=== PATIENT | female | born 1940 | race Caucasian/White ===

== ENCOUNTER 2021-05-02 00:37 | Emergency (ER) | payer OTHER ==
[2021-05-02 01:49] LABS: Urine Blood Negative (Negative); Urine Glucose Negative (Negative); Urine Protein Negative (Negative)
[2021-05-02 01:59] LABS: Absolute Lymphocytes (CBC) 2.1 K/uL (0.7-4.9); Basophils % 0.6 % (0-1.3); Hematocrit 42.3 % (36.0-45.0); Lymphocytes % 30.1 % (15.3-44.8); MPV 8.1 fL (7.6-11.3); RBC Red Blood Cell Count 4.58 M/uL (3.86-4.86)
[2021-05-02] MEDS ORDERED: NA CHLORIDE 0.9% 500 ML ONE (02:05)
[2021-05-02 02:08] LABS: Urine Bacteria <20 /HPF (<20); Urine RBC <5 /HPF (NONE SEEN)
[2021-05-02 02:12] LABS: BUN Blood Urea Nitrogen 16 mg/dL (7-18); Bicarbonate 25 mmol/L (21-32); Glucose Level 126 mg/dL (74-106); Potassium 3.2 mmol/L (3.5-5.1); Sodium Level 138 mmol/L (136-145); Troponin (Emerg Dept Use Only) < 0.02 ng/mL (0.0-0.045)
[2021-05-02] MEDS ORDERED: ACETAMINOPHEN 325 MG TABLET ONE (03:31)
[2021-05-02] MEDS ORDERED: LORAZEPAM 0.5 MG TABLET ONE (03:36)
--- NOTE | 2021-05-02 05:31 | RAD REPORT ---
EXAM DESCRIPTION: CT - Head Brain Wo Cont - 05/02/2021 2:32 am CLINICAL HISTORY: hypertension, headache COMPARISON: Head Brain Wo Cont dated 10/28/2016 TECHNIQUE: Axial 5 mm thick images of the head were obtained without IV contrast. All CT scans are performed using dose optimization technique as appropriate and may include automated exposure control or mA/KV adjustment according to patient size. FINDINGS: No intracranial hemorrhage, mass, edema or shift of mid-line structures. No acute infarcti on changes seen. Mild atrophy changes are present ventricles are in proportion to the amount of volum e loss. Chronic ischemic changes are minimal. Intracranial not clearly different 2016. Mastoid air cells and visualized portions of the paranasal sinuses are clear. No acute bony findings. IMPRESSION: Negative non-contrast CT head examination for acute finding. Above detailed findings are similar to the 2017 study.
--- NOTE | 2021-05-02 05:36 | ER ---
Nurse's Notes [facility] Name: Emi Bautista Age: 81 yrs Sex: Female : 1940 Arrival Date: 05/02/2021 Time: 00:40 Bed 27 Private MD: Diagnosis: Essential (primary) hypertension;Anxiety disorder, unspecified Presentation: 05/02 00:55 Chief complaint: Patient states: that her blood pressure has been fluctuating all day, lh3 last one at home was 167/91, so she was concerned about it and came in. States that she took a Myrbetriq for her bladder and that is when all this started. Pt states she has not taken blood pressure medication since 2019, and had pills left over, so she took that and then took half of husbands Losartan potassium tonight. C/O headache and just not feeling well. Coronavirus screen: Vaccine status: Patient reports receiving the 2nd dose of the covid vaccine. Date September 2020. Ebola Screen: No symptoms or risks identified at this time. Initial Sepsis Screen: Does the patient meet any 2 criteria? No. Patient's initial sepsis screen is negative. Does the patient have a suspected source of infection? No. Patient's initial sepsis screen is negative. Initial Sepsis Screen: Does the patient meet any 2 criteria? HR > 90 bpm. Risk Assessment: Do you want to hurt yourself or someone else? Patient reports no desire to harm self or others. Onset of symptoms was May 02, 2021. 00:55 Method Of Arrival: Ambulatory 3 00:55 Acuity: CEDRICK 2 3 Triage Assessment: 01:01 General: Appears in no apparent distress. Behavior is calm, cooperative, appropriate lh3 for age. Pain: Complains of pain in face. 01:01 Pain: Pain level that patient reports is acceptable is 2 out of 10 on a pain scale. lh3 Quality of pain is described as aching. Historical: - Allergies: 01:01 Cymbalta; lh3 01:01 Librax; lh3 01:01 Neurontin; lh3 01:01 Paxil; lh3 01:01 Qnlqimm-Rbb-Zrn Reductase Inhibitors; lh3 01:01 Tramadol HCl; lh3 01:01 Xanax; lh3 - PMHx: 01:01 Hypertension; Osteoporosis; lh3 - Immunization history:: Client reports receiving the 2nd dose of the Covid vaccine, Date received: October 2020. - Social history:: Smoking status: Patient denies any tobacco usage or history of. - Family history:: not pertinent. - Hospitalizations: : No recent hospitalization is reported. Screenin:09 Abuse screen: Denies threats or abuse. Nutritional screening: No deficits noted. cc4 Tuberculosis screening: No symptoms or risk factors identified. Fall Risk None identified. Assessment: 01:09 Reassessment: Patient denies pain at this time. Reports feeling anxious; reports blood cc4 pressure being elevated today; denies any chest pain; Dr Reza in to see with assessment done.. 01:35 Reassessment: No changes from previously documented assessment. #20 g saline lock cc4 inserted left AC x1 attempt with bld drawn \T\ sent to lab, [facility]; swabbed for Covid, [facility]. 01:35 Reassessment: BP 177/95; denies any complaints of CP; EKG done. cc4 03:10 Reassessment: c/o generalized body aches; appears to be anxious moving about in bed cc4 with increased HR \T\ BP; Dr Landaverde notified with new orders received; Tylenol 325 mg \T\ Ativan 0.5 mg given po. 04:00 Reassessment: Sitting in bed; remains awake/alert; con't to appear anxious; reports cc4 decreasing discomfort when questioned; sinus tachycardia con't noted; BP remains elevated; Dr. Landaverde, aware with no new orders rec'd \T\ present time. 05:00 Reassessment: Dozing intermittently; HR decreasing to 109; BP decreasing; BP decreasing cc4 to 142/91. 05:00 Reassessment: Dr. Landaverde in to see with no new orders received. cc4 Vital Signs: 00:55 BP 157 / 102; Pulse 97; Resp 18; Temp 97.8; Pulse Ox 97% on R/A; Weight 56.7 kg; Height lh3 5 ft. 1 in. (154.94 cm); 01:09 BP 184 / 110; Pulse 105; Resp 20; Temp 97.8(O); Pulse Ox 96% ; cc4 01:15 BP 177 / 86; Pulse 97; Resp 20; Pulse Ox 95% on R/A; cc4 03:10 BP 173 / 96; Pulse 131; Resp 22; Pulse Ox 93% on R/A; cc4 04:00 BP 164 / 97; Pulse 126; Resp 20; Temp 98.2(O); Pulse Ox 95% on R/A; cc4 05:00 BP 142 / 91; Pulse 110; Resp 20; Pulse Ox 94% on R/A; cc4 06:15 BP 148 / 89; Pulse 103; Resp 17; Temp 98.0; Pulse Ox 96% on R/A; cc4 00:55 Body Mass Index 23.62 (56.70 kg, 154.94 cm) 3 Vitals: 03:10 Cardiac Rhythm Assessment Sinus tach. cc4 ED Course: 00:40 Patient arrived in ED. wm 00:53 Norman Landaverde MD is Attending Physician. rn 01:01 Triage completed. lh3 01:01 Arm band placed on right wrist. lh3 01:09 Patient has correct armband on for positive identification. night monitor on. Pulse cc4 ox on. NIBP on. Door closed. Noise minimized. Lights dimmed. Moved to private room. Warm blanket given. Pillow given. PO fluids given. 01:09 No provider procedures requiring assistance completed. cc4 01:50 Mary Jane Contreras, SABA is Primary Nurse. cc4 01:51 Urine Microscopic Only Sent. cc4 01:51 Basic Metabolic Panel Sent. cc4 01:51 CBC with Diff Sent. cc4 04:09 CT Head Brain wo Cont In Process Unspecified. EDMS 06:15 IV discontinued, intact, bleeding controlled, No redness/swelling at site. Pressure cc4 dressing applied. Administered Medications: 01:42 Drug: NS 0.9% 500 ml Route: IV; Rate: bolus; Infused Over: 1 hrs; Site: left dc2 antecubital; Delivery: Primary tubing; 03:10 Drug: Tylenol 325 mg Route: PO; cc4 05:00 Follow up: Response: No adverse reaction; Pain is decreased cc4 03:12 Drug: Ativan (LORazepam) 0.5 mg Route: PO; cc4 06:15 Follow up: Response: No adverse reaction; Anxiety decreased; Blood pressure is lowered cc4 Outcome: 05:36 Discharge ordered by . rn 06:15 Discharged to home ambulatory, with significant other. cc4 06:15 Condition: improved 06:15 Condition: stable 06:15 Discharge instructions given to patient, significant other, Instructed on discharge instructions, follow up and referral plans. Demonstrated understanding of instructions, follow-up care. 06:53 Patient left the ED. cc4 Signatures: Dispatcher [employer] EDMS Norman Landaverde MD MD rn Marsh, Wendy wm Hardee, Latisha, RN RN 3 Mary Jane Contreras RN RN 4 Keiry Ash RN RN dc2 Corrections: (The following items were deleted from the chart) 01:52 01:50 CORONAVIRUS+MR.LAB.BRZ drawn and sent. cc4 EDHI
--- NOTE | 2021-05-02 05:36 | EDPHYS ---
Physician Documentation [facility] Name: Emi Bautista Age: 81 yrs Sex: Female : 1940 Arrival Date: 05/02/2021 Time: 00:40 Bed 27 Private MD: ED Physician Norman Landaverde HPI: 05/02 01:23 This 81 yrs old Female presents to ER via Ambulatory with complaints of High rn Blood Pressure. 01:23 The patient has elevated blood pressure and discovered this at home. Onset: The rn symptoms/episode began/occurred this morning. Modifying factors:. Associated signs and symptoms: Pertinent positives: headache, Pertinent negatives: chest pain, dyspnea, vomiting, weakness. Severity of symptoms: At its worst the blood pressure was moderate, in the emergency department the blood pressure is unchanged. The patient has experienced similar episodes in the past. The patient has not recently seen a physician. Patient reports high blood pressure since this morning associated with mild headache, generalized fatigue, and flushing sensation. Reports taken off blood pressure medication 2 years ago and doing okay. Denies any chest pain/shortness of breath/abdominal pain/vomiting/focal neurological deficit.. Historical: - Allergies: 01:01 Cymbalta; lh3 01:01 Librax; lh3 01:01 Neurontin; lh3 01:01 Paxil; lh3 01:01 Axmhxad-Ten-Qpf Reductase Inhibitors; lh3 01:01 Tramadol HCl; lh3 01:01 Xanax; lh3 - PMHx: 01:01 Hypertension; Osteoporosis; lh3 - Immunization history:: Client reports receiving the 2nd dose of the Covid vaccine, Date received: October 2020. - Social history:: Smoking status: Patient denies any tobacco usage or history of. - Family history:: not pertinent. - Hospitalizations: : No recent hospitalization is reported. ROS: 01:23 Constitutional: Negative for fever, chills, and weight loss, Eyes: Negative for injury, rn pain, redness, and discharge, ENT: Negative for injury, pain, and discharge, Neck: Negative for injury, pain, and swelling, Cardiovascular: Negative for chest pain, palpitations, and edema, Respiratory: Negative for shortness of breath, cough, wheezing, and pleuritic chest pain, Abdomen/GI: Negative for abdominal pain, nausea, vomiting, diarrhea, and constipation, Back: Negative for injury and pain, : Negative for injury, bleeding, discharge, and swelling, MS/Extremity: Negative for injury and deformity, Skin: Negative for injury, rash, and discoloration, Neuro: Negative for numbness, tingling, and seizure Exam: 01:23 Constitutional: This is a well developed, well nourished patient who is awake, alert, rn and in no acute distress. Head/Face: Normocephalic, atraumatic. Eyes: Periorbital areas with no swelling, redness, or edema. Neck: Trachea midline, no masses palpated, and no cervical lymphadenopathy. Supple, full range of motion without nuchal rigidity, or vertebral point tenderness. No Meningismus. Cardiovascular: Regular rate and rhythm. No pulse deficits. Respiratory: No increased work of breathing, no retractions or nasal flaring. Abdomen/GI: Soft, non-tender Skin: Warm, dry MS/ Extremity: Pulses equal, no cyanosis. Neuro: Awake and alert, GCS 15, oriented to person, place, time, and situation. Cranial nerves II-XII grossly intact. Motor strength 5/5 in all extremities. Sensory grossly intact. Cerebellar exam normal. Normal gait. 02:34 ECG was reviewed by the Attending Physician. rn Vital Signs: 00:55 BP 157 / 102; Pulse 97; Resp 18; Temp 97.8; Pulse Ox 97% on R/A; Weight 56.7 kg; Height lh3 5 ft. 1 in. (154.94 cm); 01:09 BP 184 / 110; Pulse 105; Resp 20; Temp 97.8(O); Pulse Ox 96% ; cc4 01:15 BP 177 / 86; Pulse 97; Resp 20; Pulse Ox 95% on R/A; cc4 03:10 BP 173 / 96; Pulse 131; Resp 22; Pulse Ox 93% on R/A; cc4 04:00 BP 164 / 97; Pulse 126; Resp 20; Temp 98.2(O); Pulse Ox 95% on R/A; cc4 05:00 BP 142 / 91; Pulse 110; Resp 20; Pulse Ox 94% on R/A; cc4 06:15 BP 148 / 89; Pulse 103; Resp 17; Temp 98.0; Pulse Ox 96% on R/A; cc4 00:55 Body Mass Index 23.62 (56.70 kg, 154.94 cm) lh3 MDM: 00:53 Patient medically screened. rn 05:33 Differential diagnosis: hypertensive crisis, Malignant HTN. Data reviewed: vital signs, rn nurses notes, lab test result(s), EKG, radiologic studies, CT scan, and as a result, I will discharge patient. Counseling: I had a detailed discussion with the patient and/or guardian regarding: the historical points, exam findings, and any diagnostic results supporting the discharge/admit diagnosis, the presence of at least one elevated blood pressure reading (>120/80) during this emergency department visit, lab results, radiology results, the need for outpatient follow up, to return to the emergency department if symptoms worsen or persist or if there are any questions or concerns that arise at home. Response to treatment: the patient's symptoms have markedly improved after treatment, and as a result, I will discharge patient. Special discussion: I have referred the patient to see his PCP for further evaluation of high blood pressure. I discussed with the patient/guardian in detail that at this point there is no indication for admission to the hospital. It is understood, however, that if the symptoms persist or worsen the patient needs to return immediately for re-evaluation. ED course: No acute findings and work-up. Patient sleeping comfortably with marked improvement in blood pressure without any blood pressure medication given here. Patient also very anxious as well. Requested Ativan, states he has had Ativan in the past when gets anxious. Will DC home with PCP follow-up for evaluation of hypertension and possible need to restart her blood pressure medication. 05/02 01:17 Order name: CBC with Diff; Complete Time: 02:13 rn 05/02 01:17 Order name: Basic Metabolic Panel; Complete Time: 02:13 rn 05/02 01:17 Order name: Troponin (emerg Dept Use Only); Complete Time: 02:13 rn 05/02 01:17 Order name: Urine Microscopic Only; Complete Time: 02:13 rn 05/02 01:48 Order name: Urine Dipstick-Ancillary; Complete Time: 01:53 EDMS 05/02 01:17 Order name: CT Head Brain wo Cont; Complete Time: 05:36 rn 05/02 01:17 Order name: IV Start; Complete Time: 01:51 rn 05/02 01:17 Order name: EKG; Complete Time: 01:18 rn 05/02 01:17 Order name: EKG - Nurse/Tech; Complete Time: 01:42 rn 05/02 02:47 Order name: SARS-COV-2 RT PCR; Complete Time: 02:48 EDMS 05/02 01:17 Order name: Urine Dipstick-Ancillary (obtain specimen); Complete Time: 01:50 rn EC:34 Rate is 91 beats/min. Rhythm is regular. QRS [place] is Normal. NM interval is normal. QRS rn interval is normal. QT interval is normal. No Q waves. T waves are Normal. No ST changes noted. Clinical impression: NSR w/ Non-specific ST/T Changes and LVH. Interpreted by me. Reviewed by me. Administered Medications: 01:42 Drug: NS 0.9% 500 ml Route: IV; Rate: bolus; Infused Over: 1 hrs; Site: left dc2 antecubital; Delivery: Primary tubing; 03:10 Drug: Tylenol 325 mg Route: PO; cc4 05:00 Follow up: Response: No adverse reaction; Pain is decreased cc4 03:12 Drug: Ativan (LORazepam) 0.5 mg Route: PO; cc4 06:15 Follow up: Response: No adverse reaction; Anxiety decreased; Blood pressure is lowered cc4 Disposition Summary: 05/02/21 05:36 Discharge Ordered Location: Home rn Problem: an ongoing problem rn Symptoms: have improved rn Condition: Stable rn Diagnosis - Essential (primary) hypertension rn - Anxiety disorder, unspecified rn Followup: rn - With: Private Physician - When: As needed - Reason: Recheck today's complaints, Re-evaluation by your physician Discharge Instructions: - Discharge Summary Sheet rn - Hypertension, Adult rn - How to Take Your Blood Pressure, [id number] rn - Generalized Anxiety Disorder, Adult rn Forms: - Medication Reconciliation Form rn - Thank You Letter rn - 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 EDMS EDMS
[2021-05-02 07:21] VITALS: BP 148/89; TEMP 98; O2SAT 96
== END 2021-05-02 06:53 | disposition home or self-care (01) ==
LOC: ER 00:37
DX: I10 Essential (primary) hypertension (principal); F41.9 Anxiety disorder, unspecified; Z20.822 Contact with and (suspected) exposure to COVID-19; Z88.5 Allergy status to narcotic agent; Z88.8 Allergy status to other drugs, medicaments and biological substances
CPT/HCPCS: 93005; 85025; 80048; 36415; 84484; 70450; 99284; U0003; J7040; 81003; 81015

== ENCOUNTER 2021-10-18 23:40 | Observation (INO) | payer OTHER ==
--- OUTSIDE RECORDS SUMMARY | 2021-10-18 23:44 | XMS REPORT | Continuity of Care Document ---
:1940 Author Organization [facility] t Address [facility] [place] [address] Care Team Providers Name Role Phone CLAIRE Attending Clinician Unavailable MD CLAIRE Attending Clinician Unavailable Bacherelle_L Attending Clinician Unavailable CLAIRE Admitting Clinician Unavailable MD CLAIRE Admitting Clinician Unavailable Baum_L Admitting Clinician Unavailable Payers Payer Name Policy Type Policy Number Effective Date Expiration Date Christina ALBRIGHT (MEDICARE [id number] 2013 REPLACEMENT PPO) 00:00:00 Problems Condition Condition Condition Status Onset Resolution Last Treating Co mments Source Name Details Category Date Date Treatment Clinician Date Carpal Problem Active 2020-05-30 Memor ia tunnel 21:39:16 l syndrome Carpal Carloz n (disorder) tunnel syndrome (disorder) Active Problem 05/30/2020 [facility] Cervical Problem Active 2020-05-30 Mem oria radiculopa 21:39:16 l thy Cervical Carloz n (disorder) radiculopa thy (disorder) Active Problem 05/30/2020 [facility] Hypertensi Problem Active 2020-05-30 M emoria ve 21:39:16 l disorder, Norden systemic Hypertensi arterial ve (disorder) disorder, systemic arterial (disorder) Active Problem 05/30/2020 [facility] Lumbar Problem Active 2020-05-30 Memor ia radiculopa 21:39:16 l thy Lumbar Norden (disorder) radiculopa thy (disorder) Active Problem 05/30/2020 [facility] Paresthesi Problem Active 2020-05-30 M emoria a 21:39:16 l (finding) Hi Paresthesi a (finding) Active Problem 05/30/2020 [facility] Snapping Problem Active 2020-05-30 Mem oria thumb 21:39:16 l syndrome Snapping Herm carl (disorder) thumb syndrome (disorder) Active Problem 05/30/2020 [facility] Allergies, Adverse Reactions, Alerts Allergy Allergy Status Severity Reaction(s) Onset Inactive Treating Comm ents Source Name Type Date Date Clinician Bayron Verma Active Memori a q q l Norden Xanax Xanax Active Memoria l Norden Paxil CR Paxil CR Active Memori a l Hi Lexapro Lexapro Active Memoria l Norden Cymbalta Cymbalta Active Memori a l Norden statins statins Active Memoria l Hi traMADol traMADol Active Memori a l [facility] Social History Smoking Status Start Date Stop Date Source Social History [facility] Medications Ordered Filled Start Stop Current Ordering Indication Dosage Frequency Signature Comments Components Source Medication Medication Date Date Medication? Clinician (SIG) Name Name losartan 25 Yes 25 mg = 1 M emoria mg oral 1-29 tab, PO, l tablet 20:00: Daily, 0 Hi 00 Refill(s) gabapentin Yes 150 mg = 3 M emoria 50 MG/ML 1-29 ml, PO, l Oral 20:00: qWeek, # Norden Solution 00 225 ml, 0 Refill(s) Vital Signs Vital Name Observation Time Observation Value Comments Source Systolic (mm Hg) 2020-01-28 18:13:00 Sim rial Norden Diastolic (mm Hg) 2020-01-28 18:13:00 Mem orial Norden Heart Rate 2020-01-28 18:13:00 [facility] Respitory Rate 2020-01-28 18:13:00 Memori al Hi Height 2020-01-28 18:13:00 154.94 cm [facility] Weight 2020-01-28 18:13:00 [facility] Hi BMI Calculated 2020-01-28 18:13:00 Memori al Hi Systolic (mm Hg) 2019-10-28 15:11:00 Sim rial Norden Diastolic (mm Hg) 2019-10-28 15:11:00 Mem orial Hi Heart Rate 2019-10-28 15:11:00 [facility] Respitory Rate 2019-10-28 15:11:00 Memori al Hi Height 2019-10-28 15:11:00 154.94 cm [facility] Weight 2019-10-28 15:11:00 [facility] BMI Calculated 2019-10-28 15:11:00 Memori al Hi Systolic (mm Hg) 2019-09-03 19:52:00 Sim pascual Hi Diastolic (mm Hg) 2019-09-03 19:52:00 Mem orial Hi Heart Rate 2019-09-03 19:52:00 [facility] Hi Respitory Rate 2019-09-03 19:52:00 Memori al Hi Height 2019-09-03 19:52:00 154.94 cm [facility] Hi Weight 2019-09-03 19:52:00 [facility] Hi BMI Calculated 2019-09-03 19:52:00 Memori al Hi Procedures This patient has no known procedures. Encounters Start End Encounter Admission Attending Care Care Encounter Source Date/Time Date/Time Type Type Clinicians Facility Department ID 2021-09-29 2021-09-30 Inpatient CLAIRE, [facility] [id number] [place] 00:00:00 00:00:00 ELY [address] 2021-09-27 2021-09-27 Outpatient CLAIRE, [facility] [id number] [place] 00:00:00 00:00:00 ELY [address] 2021-05-05 2021-05-05 Outpatient CLAIRE, [facility] [id number] [place] 00:00:00 00:00:00 ELY [address] 2021-05-04 2021-05-04 Outpatient CLAIRE, [facility] [id number] [place] 00:00:00 00:00:00 ELY [address] 2021-04-08 2021-04-08 Outpatient Baum_L [facility] [id number] [place] 12:21:00 12:21:00 [id number] 2020-05-28 2020-05-28 Ambulatory nullFlavo MNA [id number] Memoria 18:15:00 18:15:00 Pre-Reg r Neurology 03 l Rolette Norden 2020-01-28 2020-01-29 Outpatient nullFlavo MNA [id number] Memoria 18:15:00 04:59:59 r Neurology 02 l Rolette Hi 2019-10-28 2019-10-29 Outpatient nullFlavo MNA [id number] Memoria 15:15:00 04:59:59 r Neurology 01 l Rolette Norden 2019-09-03 2019-09-04 Outpatient nullFlavo HIA [id number] Memoria 19:45:00 05:59:59 r Neurology 00 l Sera Do Results Test Description Test Time Test Comments Results Result Comments Source SARS-CoV-2 (COVID-19) RNA [Presence] in Respiratory sp ecimen by 2021-09-28 01:40:21 COLIN with probe detection Test Item Value Reference Range Interpretation Comme nts SARS coronavirus RNA [Presence] in Isolate by COLIN with probe Not de tected detection (test code = 67136-4) Whether patient is employed in a healthcare setting (test code = Un known 17051-6) Whether the patient has symptoms related to condition of interest U nknown (test code = 87232-6) Whether the patient was hospitalized for condition of interest Yes (test code = 30446-3) Whether the patient was admitted to intensive care unit (ICU) for N o condition of interest (test code = 14200-7) Whether patient resides in a congregate care setting (test code = Y 44899-0) status (test code = 31623-5) No Date and time of symptom onset (test code = 63534-1) Unknown SARS-CoV-2 (COVID-19) RNA [Presence] in Respiratory specimen by COLIN with probe [id number] 01:40:21 Test Item Value Reference Range Interpretation Comments SARS-CoV-2 (COVID-19) RNA Not detected [Presence] in Respiratory specimen by COLIN with probe detection (test code = 97538-4) Whether patient is employed in a Unknown healthcare setting (test code = 09216-6) Whether the patient has symptoms Unknown related to condition of interest (test code = 83497-6) Whether the patient was Yes hospitalized for condition of interest (test code = 63582-4) Whether the patient was admitted No to intensive care unit (ICU) for condition of interest (test code = 03156-5) Whether patient resides in a Yes congregate care setting (test code = 80746-3) status (test code = No 66190-1) Date and time of symptom onset Unknown (test code = 29933-4) SARS-CoV-2 (COVID-19) RNA [Presence] in Respiratory specimen by COLIN with probe [id number] 01:54:22 Test Item Value Reference Range Interpretation Comments SARS-CoV-2 (COVID-19) RNA Not detected Not-Detected [Presence] in Respiratory specimen by COLIN with probe detection (test code = 61237-5) Whether patient is employed in a healthcare setting (test code = 87809-1) Whether the patient has symptoms related to condition of interest (test code = 86119-5) Patient was hospitalized because of this condition (test code = 39713-1) Whether the patient was admitted to intensive care unit (ICU) for condition of interest (test code = 63070-6) Whether patient resides in a congregate care setting (test code = 95130-8)
[2021-10-19] MEDS ORDERED: NA CHLORIDE 0.9% 500 ML ONE ×2 (01:01→01:57)
[2021-10-19] MEDS ORDERED: ONDANSETRON 4 MG/2 ML VIAL ONE (01:01)
[2021-10-19 01:09] LABS: Absolute Lymphocytes (CBC) 1.2 K/uL (0.7-4.9); Hematocrit 38.6 % (36.0-45.0); Lymphocytes % 15.9 % (15.3-44.8); MPV 7.8 fL (7.6-11.3)
[2021-10-19 01:27] LABS: ALT/SGPT 23 U/L (12-78); AST/SGOT 17 U/L (15-37); Albumin 3.3 g/dL (3.4-5.0); Alkaline Phosphatase 91 U/L (45-117); BUN Blood Urea Nitrogen 10 mg/dL (7-18); Bicarbonate 24 mmol/L (21-32); Bilirubin Direct 0.1 mg/dL (0-0.2); Bilirubin Total 0.4 mg/dL (0.2-1.0); Glucose Level 127 mg/dL (74-106); Lipase 83 U/L (73-393); Magnesium 1.9 mg/dL (1.8-2.4); NT PRO-BNP 146 pg/mL (<450); Potassium 3.4 mmol/L (3.5-5.1); Protein, Total 7.5 g/dL (6.4-8.2); Sodium Level 127 mmol/L (136-145)
[2021-10-19 02:10] LABS: Urine Blood Negative (Negative); Urine Glucose Negative (Negative); Urine Protein Negative (Negative); Urine pH 7.5 (5.0-7.0)
[2021-10-19] MEDS ORDERED: MORPHINE 2 MG/ML SYR ONE ×2 (02:15→03:43)
[2021-10-19 03:07] LABS: Urine Amorphous Sediment 3+ /HPF (NONE SEEN); Urine Bacteria <20 /HPF (<20); Urine RBC NONE SEEN /HPF (NONE SEEN); Urine Urothelial Cells <5 /HPF (NONE SEEN)
[2021-10-19] MEDS ORDERED: PROMETHAZINE INJ 25 MG/ML AMP ONE (03:20)
[2021-10-19] MEDS ORDERED: NA CHLORIDE 0.9% 50 ML ONE ×2 (03:20→03:24)
[2021-10-19] MEDS ORDERED: CEFTRIAXONE 1000 MG/VIAL ONE (03:24)
--- NOTE | 2021-10-19 03:26 | EDPHYS ---
Physician Documentation [facility] Name: Emi Bautista Age: 81 yrs Sex: Female : 1940 Arrival Date: 10/18/2021 Time: 23:44 Bed 13 Private MD: ED Physician Cj Jack HPI: 10/19 00:48 This 81 yrs old Female presents to ER via Ambulatory with complaints of High Blood mh7 Pressure, Vomiting. 00:49 The patient presents to the emergency department with nausea, that is mild, vomiting, 1 mh7 times since the onset of symptoms, described as undigested food. Onset: The symptoms/episode began/occurred yesterday. Possible causes: unknown. The symptoms are aggravated by nothing. The symptoms are alleviated by nothing. Associated signs and symptoms: Pertinent positives: Elevated blood pressure, Pertinent negatives: abdominal pain, anorexia, belching, constipation, diarrhea, dysuria, fever, flatulence, GI bleeding, hematuria, vaginal discharge. Severity of symptoms: At their worst the symptoms were moderate yesterday, in the emergency department the symptoms have improved moderately. Historical: - Allergies: 10/18 23:57 Cymbalta; tw5 23:57 Librax; tw 23:57 Neurontin; tw 23:57 Paxil; tw 23:57 Rbocabe-Pbx-Biv Reductase Inhibitors; tw 23:57 Tramadol HCl; tw 23:57 Xanax; tw5 - Home Meds: 23:57 clonazepam 0.5 mg Oral tab 0.25 mg [Active]; clonidine HCl 0.1 mg Oral tab 1 tab once tw5 daily [Active]; - PMHx: 23:57 Hypertension; Osteoporosis; Anxiety; tw5 - PSHx: 23:57 None; tw5 - Immunization history:: Flu vaccine is up to date. - Social history:: Smoking status: Patient denies any tobacco usage or history of. ROS: 10/19 00:49 Constitutional: Negative for fever, chills, and weight loss, Eyes: Negative for injury, mh7 pain, redness, and discharge, ENT: Negative for injury, pain, and discharge, Neck: Negative for injury, pain, and swelling, Cardiovascular: Negative for chest pain, palpitations, and edema, Respiratory: Negative for shortness of breath, cough, wheezing, and pleuritic chest pain, Back: Negative for injury and pain, : Negative for injury, bleeding, discharge, and swelling, MS/Extremity: Negative for injury and deformity, Skin: Negative for injury, rash, and discoloration, Neuro: Negative for headache, weakness, numbness, tingling, and seizure, Psych: Negative for depression, anxiety, suicide ideation, homicidal ideation, and hallucinations, Allergy/Immunology: Negative for hives, rash, and allergies, Endocrine: Negative for neck swelling, polydipsia, polyuria, polyphagia, and marked weight changes, Hematologic/Lymphatic: Negative for swollen nodes, abnormal bleeding, and unusual bruising. Exam: 00:49 Constitutional: This is a well developed, well nourished patient who is awake, alert, mh7 and in no acute distress. Head/Face: Normocephalic, atraumatic. Eyes: Pupils equal round and reactive to light, extra-ocular motions intact. Lids and lashes normal. Conjunctiva and sclera are non-icteric and not injected. Cornea within normal limits. Periorbital areas with no swelling, redness, or edema. Neck: Trachea midline, no thyromegaly or masses palpated, and no cervical lymphadenopathy. Supple, full range of motion without nuchal rigidity, or vertebral point tenderness. No Meningismus. Chest/axilla: Normal chest wall appearance and motion. Nontender with no deformity. No lesions are appreciated. Cardiovascular: Regular rate and rhythm with a normal S1 and S2. No gallops, murmurs, or rubs. Normal PMI, no JVD. No pulse deficits. Respiratory: Lungs have equal breath sounds bilaterally, clear to auscultation and percussion. No rales, rhonchi or wheezes noted. No increased work of breathing, no retractions or nasal flaring. Abdomen/GI: Soft, non-tender, with normal bowel sounds. No distension or tympany. No guarding or rebound. No evidence of tenderness throughout. Back: No spinal tenderness. No costovertebral tenderness. Full range of motion. Skin: Warm, dry with normal turgor. Normal color with no rashes, no lesions, and no evidence of cellulitis. MS/ Extremity: Pulses equal, no cyanosis. Neurovascular intact. Full, normal range of motion. Neuro: Awake and alert, GCS 15, oriented to person, place, time, and situation. Cranial nerves II-XII grossly intact. Motor strength 5/5 in all extremities. Sensory grossly intact. Cerebellar exam normal. Normal gait. Psych: Awake, alert, with orientation to person, place and time. Behavior, mood, and affect are within normal limits. 01:20 ECG was reviewed by the Attending Physician. [facility] Vital Signs: 10/18 23:55 BP 152 / 72; Pulse 102; Resp 18; Temp 97.9(O); Pulse Ox 98% on R/A; Weight 54.43 kg; tw5 Height 5 ft. 1 in. (154.94 cm); Pain 0/10; 10/19 03:32 BP 139 / 81; Pulse 96; Resp 19; Pulse Ox 93% on R/A; sm5 04:50 BP 92 / 61; Pulse 78; Resp 18; Pulse Ox 91% on R/A; sm5 05:10 BP 201 / 179; Pulse 91; Resp 20; Pulse Ox 99% on R/A; sm5 05:20 BP 133 / 88; sm5 10/18 23:55 Body Mass Index 22.67 (54.43 kg, 154.94 cm) tw5 MDM: 03:22 Differential diagnosis: Nonspecific abd pain, diverticulitis, viral gastroenteritis, [facility] gastroenteritis. Data reviewed: vital signs, nurses notes, old medical records, lab test result(s), CBC, electrolytes, urinalysis, EKG, radiologic studies, CT scan, plain films. Data interpreted: Pulse oximetry: on room air is 98 %. Interpretation: normal. Counseling: I had a detailed discussion with the patient and/or guardian regarding: the historical points, exam findings, and any diagnostic results supporting the discharge/admit diagnosis, the presence of at least one elevated blood pressure reading (>120/80) during this emergency department visit, lab results, radiology results, the need for further work-up and treatment in the hospital. Response to treatment: the patient's symptoms have mildly improved after treatment. 03:25 Patient medically screened. [facility] 10/19 00:46 Order name: Basic Metabolic Panel; Complete Time: : [facility] 10/19 00:46 Order name: CBC with Diff; Complete Time: : [facility] 10/19 00:46 Order name: LFT's; Complete Time: : [facility] 10/19 00:46 Order name: Magnesium; Complete Time: 01:28 [facility] 10/19 00:46 Order name: NT PRO-BNP; Complete Time: :28 [facility] 10/19 00:46 Order name: PT-INR; Complete Time: 01:28 [facility] 10/19 00:46 Order name: Troponin HS; Complete Time: 01:28 [facility] 10/19 00:46 Order name: XRAY Chest (1 view) [facility] 10/19 00:46 Order name: Lipase; Complete Time: 01:28 [facility] 10/19 01:30 Order name: Urine Microscopic Only; Complete Time: 03:10 [facility] 10/19 01:48 Order name: CT Head Brain wo Cont [facility] 10/19 02:09 Order name: Urine Dipstick-Ancillary; Complete Time: 03:10 [facility] 10/19 03:12 Order name: Urine Culture [facility] 10/19 03:35 Order name: COVID-19/FLU A+B (Document "Date of Onset" if Symptomatic); Complete Time: sm5 05:10 10/19 00:46 Order name: EKG; Complete Time: 00:47 [facility] 10/19 00:46 Order name: Cardiac monitoring; Complete Time: 01:09 [facility] 10/19 00:46 Order name: EKG - Nurse/Tech; Complete Time: 01:09 [facility] 10/19 01:48 Order name: CT Abd/Pelvis - IV Contrast Only [facility] 10/19 03:39 Order name: 60g Consistent Carbohydrate (ADA 1800/2000) [facility] 10/19 03:39 Order name: EKG Electrocardiogram [facility] 10/19 03:39 Order name: EKG Electrocardiogram [facility] 10/19 03:39 Order name: EKG Electrocardiogram [facility] 10/19 00:46 Order name: IV Saline Lock; Complete Time: 01:00 [facility] 10/19 00:46 Order name: Labs collected and sent; Complete Time: 01:00 [facility] 10/19 00:46 Order name: O2 Per Protocol; Complete Time: 01:09 [facility] 10/19 00:46 Order name: O2 Sat Monitoring; Complete Time: 01:09 [facility] 10/19 01:30 Order name: Urine Dipstick-Ancillary (obtain specimen); Complete Time: 02:16 [facility] EC:20 Rate is 90 beats/min. Rhythm is regular, Normal Sinus Rhythm with No ectopy. QRS [place] [facility] is Normal. RI interval is normal. QRS interval is normal. QT interval is prolonged at 474 msec. No Q waves. T waves are Normal. No ST changes noted. Clinical impression: Abnormal EKG without significant change and LVH. Administered Medications: 01:10 Drug: NS 0.9% 500 ml Route: IV; Rate: bolus; Site: right forearm; sm5 01:10 Drug: Zofran (Ondansetron) 4 mg Route: IVP; Site: right forearm; sm5 02:05 Drug: NS 0.9% 500 ml Route: IV; Rate: bolus; Site: right forearm; sm5 02:20 CANCELLED (only one administration necessaryy): morphine 2 mg IVP once; (PAIN>8) RASS sm5 on ADMN: Combtv4, Very Agttd3, Agttd2, Rstlss1, AlertClm0, Drwsy-1, LtSdtn-2, ModSdtn-3, DpSdtn-4, UnArsble-5 x2 02:20 Drug: morphine 2 mg Route: IVP; Site: right forearm; sm5 03:27 Drug: Phenergan (promethazine) 12.5 mg Route: IVP; Site: right forearm; tw5 03:45 Drug: morphine 2 mg Route: IVP; Site: right antecubital; sm5 03:46 Drug: Rocephin (cefTRIAXone) 1 grams Route: IV; Rate: per protocol; Site: right sm5 antecubital; Disposition Summary: 10/19/21 03:25 Hospitalization Ordered Hospitalization Status: Inpatient Admission [facility] Provider: Timothy Dawson [facility] Location: Telemetry/MedSurg (Inpatient) [facility] Condition: Stable [facility] Problem: new [facility] Symptoms: have improved [facility] Bed/Room Type: Standard [facility] Room Assignment: [facility](10/19/21 05:14) Diagnosis - UTI/ Urinary tract infection, site not specified [facility] - Nausea with vomiting, unspecified [facility] - Dehydration [facility] - Hypo-osmolality and hyponatremia [facility] Forms: - Medication Reconciliation Form [facility] - SBAR form [facility] Signatures: Dispatcher [employer] EDCA Renata Dotson RN RN mw Holmes, Maurice, MD MD mh7 Edw[facility]il [facility] Crystal Walden, RN RN 5 Corrections: (The following items were deleted from the chart) 02:20 02:16 morphine 2 mg IVP once; (PAIN>8) RASS on ADMN: Combtv4, Very Agttd3, Agttd2, sm5 Rstlss1, AlertClm0, Drwsy-1, LtSdtn-2, ModSdtn-3, DpSdtn-4, UnArsble-5 x2 ordered. [facility] 05:14 03:25 Ward
--- NOTE | 2021-10-19 03:26 | ER ---
Nurse's Notes [facility] Name: Emi Bautista Age: 81 yrs Sex: Female : 1940 Arrival Date: 10/18/2021 Time: 23:44 Bed 13 Private MD: Diagnosis: UTI/ Urinary tract infection, site not specified;Nausea with vomiting, unspecified;Dehydration;Hypo-osmolality and hyponatremia Presentation: 10/18 23:55 Chief complaint: Patient states: "I vomited a lot this morning, my mouth is now real tw5 real dry. My blood pressure was 190/90 about an hour ago. I feel like the pepcid I took dried out my mouth.". Coronavirus screen: Vaccine status: Patient reports receiving the 2nd dose of the covid vaccine. Moderna. Ebola Screen: Patient negative for fever greater than or equal to 101.5 degrees Fahrenheit, and additional compatible Ebola Virus Disease symptoms Patient denies exposure to infectious person. Patient denies travel to an Ebola-affected area in the 21 days before illness onset. Initial Sepsis Screen: Does the patient meet any 2 criteria? HR > 90 bpm. Does the patient have a suspected source of infection? No. Patient's initial sepsis screen is negative. Risk Assessment: Do you want to hurt yourself or someone else? Patient reports no desire to harm self or others. Onset of symptoms was October 18, 2021. 23:55 Method Of Arrival: Ambulatory tw5 23:55 Acuity: CEDRICK 3 tw5 Triage Assessment: 23:57 General: Appears in no apparent distress. Behavior is calm, cooperative, appropriate tw5 for age. Pain: Denies pain. GI: Reports nausea, vomiting. Historical: - Allergies: 23:57 Cymbalta; tw 23:57 Librax; tw 23:57 Neurontin; tw 23:57 Paxil; tw 23:57 Eoteuez-Uqt-Iel Reductase Inhibitors; tw 23:57 Tramadol HCl; tw 23:57 Xanax; tw5 - Home Meds: 23:57 clonazepam 0.5 mg Oral tab 0.25 mg [Active]; clonidine HCl 0.1 mg Oral tab 1 tab once tw5 daily [Active]; - PMHx: 23:57 Hypertension; Osteoporosis; Anxiety; tw5 - PSHx: 23:57 None; tw5 - Immunization history:: Flu vaccine is up to date. - Social history:: Smoking status: Patient denies any tobacco usage or history of. Screenin/16 03:33 Abuse screen: Denies threats or abuse. Denies injuries from another. Nutritional sm5 screening: No deficits noted. Tuberculosis screening: No symptoms or risk factors identified. Fall Risk IV access (20 points). Total Delacruz Fall Scale indicates No Risk (0-24 pts). Assessment: 03:33 General: Appears uncomfortable, Behavior is cooperative. Pain: Complains of pain in sm5 back, right leg and left leg. Neuro: No deficits noted. Level of Consciousness is awake, alert, obeys commands, Oriented to person, place, time, situation. Cardiovascular: No deficits noted. Capillary refill < 3 seconds Patient's skin is warm and dry. Respiratory: No deficits noted. Airway is patent Trachea midline Respiratory effort is even, unlabored. GI: Abdomen is flat, non-distended, Reports nausea. Vital Signs: 10/18 23:55 BP 152 / 72; Pulse 102; Resp 18; Temp 97.9(O); Pulse Ox 98% on R/A; Weight 54.43 kg; tw5 Height 5 ft. 1 in. (154.94 cm); Pain 0/10; 10/19 03:32 BP 139 / 81; Pulse 96; Resp 19; Pulse Ox 93% on R/A; sm5 04:50 BP 92 / 61; Pulse 78; Resp 18; Pulse Ox 91% on R/A; sm5 05:10 BP 201 / 179; Pulse 91; Resp 20; Pulse Ox 99% on R/A; sm5 05:20 BP 133 / 88; sm5 10/18 23:55 Body Mass Index 22.67 (54.43 kg, 154.94 cm) tw5 ED Course: 10/18 23:44 Patient arrived in ED. kc5 23:57 Triage completed. tw5 23:57 Arm band placed on left wrist. tw5 10/19 00:01 Crystal Walden, SABA is Primary Nurse. sm5 00:08 Cj Jack MD is Attending Physician. 7 00:53 Inserted saline lock: 20 gauge in right forearm, using aseptic technique. Blood 5 collected. 01:00 Lipase Sent. sm5 01:00 Basic Metabolic Panel Sent. sm5 01:00 CBC with Diff Sent. sm5 01:00 LFT's Sent. sm5 01:00 Magnesium Sent. 5 01:00 NT PRO-BNP Sent. 5 01:00 PT-INR Sent. sm5 01:00 Troponin HS Sent. sm5 01:04 XRAY Chest (1 view) In Process Unspecified. EDMS 02:16 Urine Microscopic Only Sent. sm5 02:34 CT Head Brain wo Cont In Process Unspecified. EDMS 02:34 CT Abd/Pelvis - IV Contrast Only In Process Unspecified. EDMS 03:24 Timothy Dawson MD is Hospitalizing Provider. [facility] 03:34 Patient has correct armband on for positive identification. Bed in low position. Call [facility] light in reach. Side rails up X2. cardiac monitor technician on. Pulse ox on. NIBP on. 03:45 COVID-19/FLU A+B (Document "Date of Onset" if Symptomatic) Sent. 5 05:24 No provider procedures requiring assistance completed. Patient admitted, IV remains in [facility] place. Administered Medications: 01:10 Drug: NS 0.9% 500 ml Route: IV; Rate: bolus; Site: right forearm; 5 01:10 Drug: Zofran (Ondansetron) 4 mg Route: IVP; Site: right forearm; 5 02:05 Drug: NS 0.9% 500 ml Route: IV; Rate: bolus; Site: right forearm; 5 02:20 CANCELLED (only one administration necessaryy): morphine 2 mg IVP once; (PAIN>8) RASS [facility] on ADMN: Combtv4, Very Agttd3, Agttd2, Rstlss1, AlertClm0, Drwsy-1, LtSdtn-2, ModSdtn-3, DpSdtn-4, UnArsble-5 x2 02:20 Drug: morphine 2 mg Route: IVP; Site: right forearm; 5 03:27 Drug: Phenergan (promethazine) 12.5 mg Route: IVP; Site: right forearm; 5 03:45 Drug: morphine 2 mg Route: IVP; Site: right antecubital; 5 03:46 Drug: Rocephin (cefTRIAXone) 1 grams Route: IV; Rate: per protocol; Site: right 5 antecubital; Outcome: 03:25 Decision to Hospitalize by Provider. hossein 05:24 Admitted to Med/surg accompanied by tech, via stretcher, with chart, Report called to ernesto Adams 05:24 Condition: stable 05:24 Instructed on the need for admit. 05:31 Patient left the ED. [facility] Signatures: Dispatcher [employer] EDCj Mckeon MD MD 7 Edwige Khalil 5 [place] 5 Crystal Walden, RN RN [facility]
[2021-10-19] MEDS ORDERED: ACETAMINOPHEN 325 MG TABLET PO PRN (03:28)
[2021-10-19] MEDS ORDERED: ALBUTEROL 2.5 MG/3 ML NEB SOL NEB PRN (03:28)
[2021-10-19 05:08] LABS: SARS-COV-2 RT PCR NEGATIVE (NEGATIVE)
[2021-10-19] MEDS: D5 0.9 NS 1,000 ML IV SCH ×2 (06:12→15:31)
[2021-10-19 06:41] VITALS: BMI 22.6
[2021-10-19] MEDS ORDERED: PROMETHAZINE INJ 25 MG/ML AMP IV PRN (07:00)
--- NOTE | 2021-10-19 07:23 | EKG ---
Test Date: 2021-10-19 Test Time: 01:07:45 Sales Analytics Manager: BRITTNEY MEASUREMENT RESULTS: Intervals: Rate: 90 MD: 140 QRSD: 88 QT: 388 QTc: 474 Ruth: P: 77 MD: 140 QRS: 81 T: 79 INTERPRETIVE STATEMENTS: Normal sinus rhythm Possible Left atrial enlargement Left ventricular hypertrophy Prolonged QT Abnormal ECG Compared to ECG 05/02/2021 01:37:21 Prolonged QT interval now present ST (T wave) deviation no longer present Electronically Signed On 10-19-21 07:21:55 CDT by Robb Langston
[2021-10-19] MEDS ORDERED: IPRATROPIUM BROM 0.5MG/2.5ML NEB SCH (08:00)
[2021-10-19] MEDS ORDERED: MORPHINE 4 MG/ML SYR IV PRN (08:00)
[2021-10-19] MEDS ORDERED: KCL 20 MEQ/100 mL IVPB 20 MEQ/100 ML BAG IV ONE (09:00)
[2021-10-19] MEDS ORDERED: ONDANSETRON 4 MG/2 ML VIAL IV PRN (09:00)
--- NOTE | 2021-10-19 12:30 | RAD REPORT ---
EXAM DESCRIPTION: Head Brain Wo Cont 10/19/2021 3:08 AM CDT CLINICAL HISTORY: 81 years, Female, DIZZINESS COMPARISON: 05/02/2021. FINDINGS: Multiple transaxial tomograms of the brain were obtained from the base of the skull to the vertex without contrast. 2-D multiplanar reformats and the coronal and sagittal plane were performed and reviewed. This exam was performed according to our departmental dose-optimization protocol, which includes auto mated exposure control, adjustment of the mA and/or kV according to patient size and/or use of iterat jean claude reconstruction technique. Brain parenchyma demonstrate mild prominence of the sulci and gyri are corresponding to mild cerebral and cerebellar atrophy. There is no midline shift and/or mass effect. There is no evidence for acute intracranial hemorrhage. Lateral ventricles and cisterns displace normal appearance. No intra or extra axial fluid collections were seen. The calvarium is intact with no evidence for fracture. The visualized portions of the paranasal sinuses and orbits demonstrate to be clear. IMPRESSION: BRAIN ATROPHY. NO ACUTE INTRACRANIAL HEMORRHAGE. Electronically signed by: Panda Clark MD 10/19/2021 3:09 AM CDT Due to temporary technical issues with the PACS/Fluency reporting system, reports are being signed by the in house radiologist without review as a courtesy to ensure prompt reporting. The interpreting r adiologist is fully responsible for the content of the report.
--- NOTE | 2021-10-19 12:41 | RAD REPORT ---
EXAM DESCRIPTION: Abdomen Pelvis W Contrast 10/19/2021 3:04 AM CDT CLINICAL HISTORY: 81 years, Female, Nausea / vomiting;Abd pain COMPARISON: None. TECHNIQUE: Contrast-enhanced images of the abdomen and pelvis were performed utilizing 5 mm slice th ickness at 5 mm interval reconstruction from the lung bases to the ischial tuberosities after the adm inistration of IV contrast. In addition multiplanar reformats in the coronal and sagittal plane were obtained and reviewed. This exam was performed according to our departmental dose-optimization protocol, which includes auto mated exposure control, adjustment of the mA and/or kV according to patient size and/or use of iterat jean claude reconstruction technique. FINDINGS: The lung bases minimal dependent atelectatic changes and/or scarring lung bases. Bilateral breast implants. The liver, gallbladder, pancreas, spleen and adrenal glands demonstrate to be unremarkable, no focal lesions are noted. The kidneys demonstrate normal uptake of contrast media. There is small bilateral extrarenal pelves. No evidence for nephrolithiasis and/or hydronephrosis. Grossly the unopacified stomach, small bowel and large bowel demonstrate to be within normal limits. There is no evidence for bowel dilatation/or free air. The appendix is normal. There is diverticu losis within the left site colon The urinary bladder demonstrate to be unremarkable. The uterus is absent. There are no adnexal mass es. The aorta demonstrate minimal atheromatous plaque formation extending at the aortic bifurcation . There is no retroperitoneal lymphadenopathy. There is no ascites. The bone windows demonstrate mild diffuse bony osteopenia. Degenerative disc disease at L3/L4. IMPRESSION: No acute intra-abdominal process. Diverticulosis without evidence for diverticulitis. Status post hysterectomy. Degenerative disc disease at L3/L4. Electronically signed by: Panda Clark MD 10/19/2021 3:08 AM CDT Due to temporary technical issues with the PACS/Fluency reporting system, reports are being signed by the in house radiologist without review as a courtesy to ensure prompt reporting. The interpreting r adiologist is fully responsible for the content of the report.
--- NOTE | 2021-10-19 12:49 | RAD REPORT ---
EXAM DESCRIPTION: Chest Single View CLINICAL HISTORY: 81 years Female, Hypertensive TECHNIQUE: 1 view (Single frontal view of the chest) COMPARISON: None. FINDINGS: LINES AND TUBES: None. CARDIOVASCULAR STRUCTURES: ormal heart size. No pulmonary venous congestion. LUNGS: No confluent areas of acute consolidation. PLEURA: No layering pleural effusions. No pneumothorax. BONES: No acute osseous abnormality of the thorax. IMPRESSION: 1. No acute cardiopulmonary disease. Electronically signed by: Erickson Lopez MD 10/19/2021 1:18 AM CDT Due to temporary technical issues with the PACS/Fluency reporting system, reports are being signed by the in house radiologist without review as a courtesy to ensure prompt reporting. The interpreting r adiologist is fully responsible for the content of the report.
[2021-10-19] MEDS ORDERED: CEFTRIAXONE 1,000 MG in NA CHLORIDE 0.9% 50 ML IVPB SCH (15:00)
[2021-10-19 16:16] VITALS: BP 123/51; TEMP 98.2
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
[2021-10-19 20:00] VITALS: O2SAT 96
--- NOTE | 2021-10-24 08:38 | EKG ---
Test Date: 2021-10-19 Test Time: 08:44:58 Senior C Software Developer: KALYAN MEASUREMENT RESULTS: Intervals: Rate: 91 [place]: 136 QRSD: 84 QT: 386 QTc: 474 [place]: P: 79 [place]: 136 QRS: 83 T: 84 INTERPRETIVE STATEMENTS: Normal sinus rhythm Minimal voltage criteria for LVH, may be normal variant Prolonged QT Abnormal ECG Compared to ECG 10/19/2021 01:07:45 No significant changes Electronically Signed On 10-24-21 08:25:06 CDT by Robb Langston
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
== END 2021-10-19 20:10 | disposition home or self-care (01) ==
LOC: ER 23:40 → INTOOBSV 10-19 03:44 → ERHOLD 10-19 03:44 → 4TH 10-19 05:17
PROVIDERS: ADMIT Internal Medicine; ATTEND Internal Medicine
DX: B34.9 Viral infection, unspecified (principal); R27.0 Ataxia, unspecified; F41.9 Anxiety disorder, unspecified; F32.A Depression, unspecified; E86.0 Dehydration; K57.90 Diverticulosis of intestine, part unspecified, without perforation or abscess without bleeding; I10 Essential (primary) hypertension; E87.1 Hypo-osmolality and hyponatremia; G47.00 Insomnia, unspecified; K59.09 Other constipation; M19.90 Unspecified osteoarthritis, unspecified site; M54.9 Dorsalgia, unspecified; G89.29 Other chronic pain; M81.0 Age-related osteoporosis without current pathological fracture; Z20.822 Contact with and (suspected) exposure to COVID-19; Z88.8 Allergy status to other drugs, medicaments and biological substances; Z88.6 Allergy status to analgesic agent; Z90.710 Acquired absence of both cervix and uterus; Z83.6 Family history of other diseases of the respiratory system; Z82.3 Family history of stroke
CPT/HCPCS: 93005 ×2; 85025; 87086; 80048; 36415; 83735; 85610; 80076; 84484; 83690; 83880; 0240U; 70450; 74177; 71045; 94760 ×3; 99285; Q9967; J2550; J3480; J2270 ×2; J7042 ×2; J7040 ×2; J2405; 81003; 81015; 87088

== ENCOUNTER 2022-10-25 03:57 | Observation (INO) | payer OTHER ==
--- OUTSIDE RECORDS SUMMARY | 2022-10-25 04:01 | XMS REPORT | Continuity of Care Document ---
:1940 Author Organization [facility] t Address [address] [place] [address] Care Team Providers Name Role Phone Timothy Dawson MD Primary Care Physician Gurmeet Attending Clinician Unavailable ELY RANGEL Attending Clinician Unavailable MD ELY RANGEL Attending Clinician Unavailable Gurmeet Admitting Clinician Unavailable ELY RANGEL Admitting Clinician Unavailable MD ELY RANGEL Admitting Clinician Unavailable Payers Payer Name Policy Type Policy Number Effective Date Expiration Date S niraj ALBRIGHT (MEDICARE [id number] 2013 REPLACEMENT PPO) 00:00:00 Problems Condition Condition Condition Status Onset Resolution Last Treating Co mments Source Name Details Category Date Date Treatment Clinician Date S/P S/P Disease Active [facility] cosmetic cosmetic 2-24 st plastic plastic 00:00: Hospita surgery surgery 00 l 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 Carloz n (disorder) (disorder) Active Problem 05/30/2020 [facility] Cervical Cervical Problem Active 2020-05-30 [facility] radiculopa radiculopa 21:39:16 l thy thy Hi (disorder) (disorder) Active Problem 05/30/2020 [facility] Hypertensi Problem Active 2020-05-30 M emoria ve Hypertensi 21:39:16 l disorder, ve Hi systemic disorder, arterial systemic (disorder) arterial (disorder) Active Problem 05/30/2020 [facility] Lumbar Lumbar Problem Active 2020-05-30 Sim remi radiculopa radiculopa 21:39:16 l thy thy [place] (disorder) (disorder) Active Problem 05/30/2020 [facility] Paresthesi Paresthes Problem Active 2020-05-30 Memoria a ia 21:39:16 l (finding) (finding) Herm carl Active Problem 05/30/2020 [facility] Snapping Snapping Problem Active 2020-05-30 [facility] thumb thumb 21:39:16 l syndrome syndrome Carloz n (disorder) (disorder) Active Problem 05/30/2020 [facility] Allergies, Adverse Reactions, Alerts Allergy Allergy Status Severity Reaction(s) Onset Inactive Treating Comm ents Source Name Type Date Date Clinician Jose Polanco Active Other (See Makes her Methodi ty to Comments) 04-[address] adverse 00:00: funny Hospita reaction 00 l s to drug traMADol traMADol Active Memori a l Hi Myrbetri Myrbetri Active Memori a q q l Hi Xanax Xanax Active [facility]oria l [place] Paxil CR Paxil CR Active Memori a l Hi Lexapro Lexapro Active [facility] l Hi Cymbalta Cymbalta Active Memori a l Hi statins statins Active [facility] [place] Family History Family Member Diagnosis Comments Start Date Stop Date Source Natural [facility] Social [facility] Social Habit Start Date Stop Date Quantity Comments Source History SDOH [facility] SDAZ [facility] Drinks Alcohol intake 2021-09-29 2021-09-29 [facility]00 [facility]-drinker [facility] (finding) History SDOH 2021-04-26 2021-04-26 1 [facility] 00:[facility]:00 00[facility]00:00 [facility]ospita l Tobacco use and 2021-04-26 2021-04-26 Smokeless tobacco [facility] exposure 00:00:00 00:00:00 [facility]-user Hospital Sex Assigned At [birth year] [facility] Smoking Status Start Date Stop Date Source Never smoked tobacco [facility] Medications Ordered Filled Start Stop Current Ordering Indication Dosage Frequency Signature Comments Components Source Medication Medication Date Date Medication? Clinician (SIG) Name Name nitrofurant Yes 50mg Q.25D Take 50 mg Methodi oin 2-[address] (MACRODANTI 12:39: (four) Hosp chase N) 50 MG 00 times a l capsule day. bacitracin 2021- No QD Apply Metho di ointment 10-[address] tube 00:00: 04:59 daily for Hospita 00 :00 30 days. l docusate 2021- No 100mg QD Take 1 Metho di sodium 10-[address] (COLACE) 00:00: 04:59 (100 mg Hospi ta 100 MG 00 :00 total) by l capsule mouth daily for 30 days. multivitami Yes 1{tbl} QD Take 1 Me thodi n tablet 2-[address] 12:39: mouth Hospita 28 daily. l calcium Yes Take by Methodi carbonate/v 2-[address] itamin D3 12:39: Hospita (CALCIUM 28 l 500 + D, D3, ORAL) cranberry Yes Take by Metho di fruit 2-[address] extract 12:39: Hospita (CRANBERRY 28 l EXTRACT ORAL) losartan 25 Yes 25 mg = 1 M emoria mg oral 1-29 tab, PO, l tablet 20:00: Daily, 0 [place] 00 Refill(s) gabapentin Yes 150 mg = 3 M emoria 50 MG/ML 1-29 ml, PO, l Oral 20:00: qWeek, # [place] Solution 00 225 ml, 0 Refill(s) Immunizations Ordered Immunization Filled Immunization Date Status Commen ts [facility] Com[facility] t M[facility] VACCINATION 00:00:00 [facility] COVID-19 2020-08-17 Completed Methodis t MRNA VACCINATION 00:00:00 Hospital Vital Signs Vital Name Observation Time Observation Value Comments Source Systolic (mm Hg) 2020-01-28 18:13:00 Sim Do Diastolic (mm Hg) 2020-01-28 18:13:00 Mem orial Hi Heart Rate 2020-01-28 18:13:00 [facility] [place] Respitory Rate 2020-01-28 18:13:00 Memori al [place] Height 2020-01-28 18:13:00 154.94 cm [facility] Weight 2020-01-28 18:13:00 [facility] [place] BMI Calculated 2020-01-28 18:13:00 Memori al Hi Systolic (mm Hg) 2019-10-28 15:11:00 Sim rial Hi Diastolic (mm Hg) 2019-10-28 15:11:00 Mem orial [place] Heart Rate 2019-10-28 15:11:00 [facility] Respitory Rate 2019-10-28 15:11:00 Memori al [place] Height 2019-10-28 15:11:00 154.94 cm [facility] [place] Weight 2019-10-28 15:11:00 [facility] [place] BMI Calculated 2019-10-28 15:11:00 Memori al [place] Systolic (mm Hg) 2019-09-03 19:52:00 Sim rial [place] Diastolic (mm Hg) 2019-09-03 19:52:00 Mem orial Hi Heart Rate 2019-09-03 19:52:00 [facility] Hi Respitory Rate 2019-09-03 19:52:00 Memori al [place] Height 2019-09-03 19:52:00 154.94 cm [facility] Hi Weight 2019-09-03 19:52:00 [facility] [place] BMI Calculated 2019-09-03 19:52:00 Memori al [place] Procedures This patient has no known procedures. Plan of Care Planned Activity Planned Date Details Comments Source Future Scheduled 2022-07-18 SHINGLES VACCINES ([address] [facility] Hospital Test 00:35:41 of 2) [code = SHINGLES VACCINES (1 of 2)] Future Scheduled 2022-07-18 65+ [facility] 00:35:41 VACCINE (2 - PCV) [code = 65+ PNEUMOCOCCAL VACCINE (2 - PCV)] Future Scheduled 2022-07-18 COVID-19 VACCINE (3 - Me [facility] Hospital Test 00:35:41 Booster for Moderna series) [code = COVID-19 VACCINE (3 - Booster for Moderna series)] Future Scheduled 2022-07-18 INFLUENZA VACCINE Method [facility] Hospital Test 00:35:41 [code = INFLUENZA VACCINE] Encounters Start End Encounter Admission Attending Care Care Encounter Source Date/Time Date/Time Type Type Clinicians Facility Department ID 2022-05-05 2022-05-05 Outpatient Baum_L [facility] [id number] [place] 00:00:00 00:00:00 [id number] 2021-09-29 2021-09-30 Inpatient CLAIRE, [facility] 021 [id number] [place] 00:00:00 00:00:00 ELY 379 Method i 2021-09-27 2021-09-27 Outpatient CLAIRE, [facility] [id number] [place] 00:00:00 00:00:00 ELY 920 Method i 2021-05-05 2021-05-05 Outpatient CLAIRE, [facility] [id number] [place] 00:00:00 00:00:00 ELY 740 Method i 2021-05-04 2021-05-04 [facility] CLA[facility], [facility] [id number] [place] 00:00:00 00:00:00 ELY 695 Method i 2021-04-08 2021-04-08 Outpatient Baum_L U [facility] [id number] [place] 12:21:00 12:21:00 [id number] 2020-05-28 2020-05-28 Ambulatory nullFlavo MNA [id number] Memoria 18:15:00 18:15:00 Pre-Reg r Neurology 03 l [place] 2020-01-28 2020-01-29 Outpatient nullFlavo MNA [id number] Memoria 18:15:00 04:59:59 r Neurology 02 l [place] 2019-10-28 2019-10-29 Outpatient nullFlavo MNA [id number] Memoria 15:15:00 04:59:59 r Neurology 01 l [place] 2019-09-03 2019-09-04 Outpatient nullFlavo MNA [id number] Memoria 19:45:00 05:59:59 r Neurology 00 l [place] Results Test Description Test Time Test Comments Results Result Comments Source SARS-CoV-2 (COVID-19) RNA [Presence] in Respiratory sp ecimen by 2021-09-28 01:40:21 COLIN with probe detection Test Item Value Reference Range Interpretation Comme nts SARS coronavirus RNA [Presence] in Isolate by COLIN with probe Not de tected detection (test code = 13590-7) Whether patient is employed in a healthcare setting (test code = Un known 17082-6) Whether the patient has symptoms related to condition of interest U nknown (test code = 51105-1) Whether the patient was hospitalized for condition of interest Yes (test code = 61535-0) Whether the patient was admitted to intensive care unit (ICU) for N o condition of interest (test code = 01144-8) Whether patient resides in a congregate care setting (test code = Y es 11905-2) status (test code = 74382-2) No Date and time of symptom onset (test code = 98825-9) [facility] [Presence] in Respiratory specimen by COLIN with probe [id number] 01:40:21 Test Item Value Reference Range Interpretation Comments SARS-CoV-2 (COVID-19) RNA Not detected [Presence] in Respiratory specimen by COLIN with probe detection (test code = 22750-5) Whether patient is employed in a Unknown healthcare setting (test code = 48278-6) Whether the patient has symptoms Unknown related to condition of interest (test code = 00122-5) Whether the patient was Yes hospitalized for condition of interest (test code = 61167-2) Whether the patient was admitted No to intensive care unit (ICU) for condition of interest (test code = 97114-4) Whether patient resides in a Yes congregate care setting (test code = 19309-4) status (test code = No 30878-9) Date and time of symptom onset Unknown (test code = 84092-7) [facility] (COVID-19) RNA [Presence] in Respiratory specimen by COLIN with probe [id number] 01:54:22 Test Item Value Reference Range Interpretation Comments SARS-CoV-2 (COVID-19) RNA Not detected Not-Detected [Presence] in Respiratory specimen by COLIN with probe detection (test code = 96030-7) Whether patient is employed in a healthcare setting (test code = 27313-0) Whether the patient has symptoms related to condition of interest (test code = 57275-9) Patient was hospitalized because of this condition (test code = 68479-6) Whether the patient was admitted to intensive care unit (ICU) for condition of interest (test code = 07040-4) Whether patient resides in a congregate care setting (test code = 73180-1) [facility]
[2022-10-25] MEDS ORDERED: NA CHLORIDE 0.9% 1,000 ML ONE ×2 (04:22→07:36)
[2022-10-25] MEDS ORDERED: ONDANSETRON 4 MG/2 ML VIAL ONE ×2 (05:05→05:52)
[2022-10-25 05:31] LABS: Absolute Lymphocytes (CBC) 2.1 K/uL (0.7-4.9); Hematocrit 39.8 % (36.0-45.0); Lymphocytes % 30.8 % (15.3-44.8); MCV 91.4 fL (80-100); MPV 7.9 fL (7.6-11.3); RBC Red Blood Cell Count 4.36 M/uL (3.86-4.86)
[2022-10-25 05:41] LABS: Albumin 3.2 g/dL (3.4-5.0); Bilirubin Direct 0.1 mg/dL (0-0.2); Bilirubin Total 0.6 mg/dL (0.2-1.0); Magnesium 1.8 mg/dL (1.6-2.4); Potassium 3.2 mEq/L (3.5-5.1); Protein, Total 6.9 g/dL (6.4-8.2); Troponin High Sensitivity 6.4 pg/mL (<58.9)
[2022-10-25 05:49] LABS: Specific Gravity 1.011 (1.005-1.030); Urine Bacteria <20 /HPF (<20); Urine Bilirubin NEGATIVE (Negative); Urine Blood Negative (Negative); Urine Clarity Turbid (Clear); Urine Color Light-Yellow (Yellow); Urine Glucose NEGATIVE (Negative); Urine Mucus Slight /HPF (None Seen); Urine Protein NEGATIVE (Negative); Urine RBC None Seen /HPF (None Seen); Urine Urobilinogen Normal (Normal); Urine pH 7.5 (5.0-7.0)
--- NOTE | 2022-10-25 05:51 | EDPHYS ---
Physician Documentation [facility] Name: Emi Bautista Age: 82 yrs Sex: Female : 1940 Arrival Date: 10/25/2022 Time: 04:00 Bed 18 Private MD: ED Physician Felice Kothari HPI: 10/25 04:18 This 82 yrs old Female presents to ER via EMS with complaints of generalized weakness sp3 and fatigue. 04:18 -year-old female patient of Dr. Dawson with history of anxiety, hypertension, sp3 osteoporosis presents with chief complaint generalized weakness and fatigue for approximately [address] Dawson in the office yesterday at which point he ordered lab work and obtained an EKG. Those results are still pending. Over the last 12 hours patient states that she became particularly weak globally without any focal deficits and stated she just could not get up even and so she activated EMS and presents here today. She states that she has been peeing less and thinks she needs "IV fluids" to help her with the dehydration. She states that her p.o. intake has not changed. On review of systems, she denies headache, neck pain, chest pain, back pain, shortness of breath, abdominal pain, nausea, vomiting, diarrhea, rash, syncope, focal deficit, travel history, known sick contacts, or any other symptoms at this time.. Historical: - Allergies: 04:10 Cymbalta; ll3 04:10 Librax; ll3 04:10 Neurontin; ll3 04:10 Paxil; ll3 04:10 Zgrsavz-Uwi-Dvy Reductase Inhibitors; ll3 04:10 Tramadol HCl; ll3 04:10 Xanax; ll3 - Home Meds: 04:10 carvedilol 3.125 mg oral tablet once [Active]; Zoloft Oral [Active]; ll3 - PMHx: 04:10 Anxiety; Hypertension; Osteoporosis; ll3 - PSHx: 04:10 Total abdominal hysterectomy; ll3 - Immunization history:: Client reports receiving the 2nd dose of the Covid vaccine. - Social history:: Smoking status: Patient denies any tobacco usage or history of. ROS: 04:19 Constitutional: Negative for fever, chills, and weight loss, Eyes: Negative for injury, sp3 pain, redness, and discharge, Neck: Negative for injury, pain, and swelling, Cardiovascular: Negative for chest pain, palpitations, and edema, Respiratory: Negative for shortness of breath, cough, wheezing, and pleuritic chest pain, Abdomen/GI: Negative for abdominal pain, nausea, vomiting, diarrhea, and constipation, Back: Negative for injury and pain, MS/Extremity: Negative for injury and deformity, Skin: Negative for injury, rash, and discoloration, Neuro: Negative for headache, weakness, numbness, tingling, and seizure, Psych: Negative for depression, anxiety, suicide ideation, homicidal ideation, and hallucinations, Allergy/Immunology: Negative for hives, rash, and allergies, Endocrine: Negative for neck swelling, polydipsia, polyuria, polyphagia, and marked weight changes. 04:19 All other systems are negative. Exam: 04:19 Constitutional: This is a well developed, well nourished patient who is awake, alert, sp3 and in no acute distress. Head/Face: Normocephalic, atraumatic. Eyes: Pupils equal round and reactive to light, extra-ocular motions intact. Lids and lashes normal. Conjunctiva and sclera are non-icteric and not injected. Cornea within normal limits. Periorbital areas with no swelling, redness, or edema. Neck: Trachea midline, no thyromegaly or masses palpated, and no cervical lymphadenopathy. Supple, full range of motion without nuchal rigidity, or vertebral point tenderness. No Meningismus. Chest/axilla: Normal chest wall appearance and motion. Nontender with no deformity. No lesions are appreciated. Cardiovascular: Regular rate and rhythm with a normal S1 and S2. No gallops, murmurs, or rubs. Normal PMI, no JVD. No pulse deficits. Respiratory: Lungs have equal breath sounds bilaterally, clear to auscultation and percussion. No rales, rhonchi or wheezes noted. No increased work of breathing, no retractions or nasal flaring. Abdomen/GI: Soft, non-tender, with normal bowel sounds. No distension or tympany. No guarding or rebound. No evidence of tenderness throughout. Back: No spinal tenderness. No costovertebral tenderness. Full range of motion. Skin: Warm, dry with normal turgor. Normal color with no rashes, no lesions, and no evidence of cellulitis. MS/ Extremity: Pulses equal, no cyanosis. Neurovascular intact. Full, normal range of motion. Neuro: Awake and alert, GCS 15, oriented to person, place, time, and situation. Cranial nerves II-XII grossly intact. Motor strength 5/5 in all extremities. Sensory grossly intact. Cerebellar exam normal. Normal gait. Psych: Awake, alert, with orientation to person, place and time. Behavior, mood, and affect are within normal limits. 04:19 ENT: Mucous membranes noted.. 04:53 ECG was reviewed by the Attending Physician. EKG demonstrates normal sinus rhythm at 73 sp3 bpm with normal intervals, normal axis, normal QRS, normal ST/T segments without evidence of acute ischemia. Vital Signs: 04:08 BP 177 / 97; Pulse 82; Resp 18; Temp 97.7(O); Pulse Ox 98% on R/A; Weight 53.07 kg (R); ll3 Height 5 ft. 1 in. (R); Pain 0/10; 05:10 BP 166 / 89; Pulse 83; Resp 20; Pulse Ox 98% on R/A; ll3 07:14 BP 166 / 85; Pulse 91; Pulse Ox 96% on R/A; ap3 04:08 Body Mass Index 22.11 (53.07 kg, 154.94 cm) ll3 04:08 Pain Scale: Adult ll3 MDM: 04:20 Data reviewed: vital signs, nurses notes, lab test result(s), EKG, radiologic studies. sp3 ED course: 82-year-old female with generalized weakness with vague symptoms. Differential diagnosis is broad and includes dehydration, urinary tract infection, pyelonephritis, pneumonia, viral syndrome, bronchitis, ACS, among others. Clinically I ruled out sepsis, shock, pulmonary embolism, thoracic aortic dissection, or any other critical findings at this time.. 05:45 ED course: Discussion with patient, she mentioned that Dr. Dawson wanted her to be sp3 admitted yesterday. We will continue IV fluids and obtain serial cardiac markers and place under 23-hour observation.. 05:50 Patient medically screened. sp3 06:02 ED course: Discussed patient with Dr. Dawson who will be seeing later this morning.. sp3 10/25 04:09 Order name: Basic Metabolic Panel; Complete Time: 05:48 sp3 10/25 04:09 Order name: CBC with Diff; Complete Time: 05:48 sp3 10/25 04:09 Order name: LFT's; Complete Time: 05:48 sp3 10/25 04:09 Order name: Magnesium; Complete Time: 05:48 sp3 10/25 04:09 Order name: NT PRO-BNP; Complete Time: 05:48 sp3 10/25 04:09 Order name: Troponin HS; Complete Time: 05:48 sp3 10/25 04:10 Order name: Urinalysis W/Microscopic sp3 10/25 05:52 Order name: SARS RAPID 3 10/25 06:15 Order name: SARS-COV-2 Antigen Rapid EDMS 10/25 11:31 Order name: Creatine Phosphokinase EDMS 10/25 11:31 Order name: Troponin High Sensitivity EDMS 10/25 04:09 Order name: XRAY Chest (1 view) sp3 10/25 04:09 Order name: EKG; Complete Time: 04:10 sp3 10/25 04:09 Order name: Cardiac monitoring; Complete Time: 04:14 sp3 10/25 04:09 Order name: EKG - Nurse/Tech; Complete Time: 04:35 sp3 10/25 04:09 Order name: IV Saline Lock; Complete Time: 04:25 sp3 10/25 04:09 Order name: Labs collected and sent; Complete Time: 04:25 sp3 10/25 04:09 Order name: O2 Sat Monitoring; Complete Time: 04:14 sp3 10/25 04:10 Order name: Cath: If no sample in 30 mins; Complete Time: 05:27 sp3 Administered Medications: 04:24 Drug: NS 0.9% IV 1000 ml Route: IV; Rate: 1 bolus; Site: right antecubital; ll3 06:23 Follow up: Response: No adverse reaction; IV Status: Completed infusion; IV Intake: ll3 1000ml 05:03 Drug: Ondansetron IVP 4 mg Route: IVP; Site: right forearm; ll3 06:23 Follow up: Response: No adverse reaction; Nausea unchanged ll3 05:49 CANCELLED (error): Naloxone IVP 0.4 mg IVP once sp3 05:58 Drug: Ondansetron IVP 4 mg Route: IVP; Site: right forearm; ll3 Disposition Summary: 10/25/22 05:50 Hospitalization Ordered Hospitalization Status: Observation sp3 Provider: Timothy Dawson sp3 Condition: Stable sp3 Problem: an acute exacerbation sp3 Symptoms: have worsened sp3 Bed/Room Type: Standard sp3 Location: Telemetry/MedSurg (observation)(10/25/22 13:28) eb Room Assignment: 408(10/25/22 13:28) eb Diagnosis - Dehydration sp3 Forms: - Medication Reconciliation Form sp3 - SBAR form sp3 Signatures: Dispatcher [employer] EDWinsome Harding, RN RN cg Juliana Chao Setul, MD MD sp3 Kalyan Lange RN RN ll3 Corrections: (The following items were deleted from the chart) 05:49 05:49 Naloxone IVP 0.4 mg IVP once ordered. sp3 sp3 06:38 05:50 Telemetry/MedSurg (observation) sp3 cg 06:38 05:50 sp3 cg 13:28 06:38 [facility] ER HOLD cg eb 13:28 06:38 ERHOLD- cg eb
--- NOTE | 2022-10-25 05:51 | ER ---
Nurse's Notes [facility] Name: Emi Bautista Age: 82 yrs Sex: Female : 1940 Arrival Date: 10/25/2022 Time: 04:00 Bed 18 Private MD: Diagnosis: Dehydration Presentation: 10/25 04:08 Chief complaint: EMS states: Toned out for generalized weakness, decreased appetite, ll3 fatigue, and HTN, EMS states pt took a dose of carvedilol [employer]. Coronavirus screen: Vaccine status: Patient reports receiving the 2nd dose of the covid vaccine. fatigue, nausea. Ebola Screen: No symptoms or risks identified at this time. Initial Sepsis Screen: Does the patient meet any 2 criteria? No. Patient's initial sepsis screen is negative. Does the patient have a suspected source of infection? No. Patient's initial sepsis screen is negative. Risk Assessment: Do you want to hurt yourself or someone else? Patient reports no desire to harm self or others. Onset of symptoms is unknown. Care prior to arrival: None. 04:08 Method Of Arrival: EMS: [facility] ll3 04:08 Acuity: CEDRICK 3 ll3 Triage Assessment: 04:10 General: Appears uncomfortable, Behavior is cooperative, anxious, Reports feeling ill ll3 for 2 weeks. fatigue for 2-3 days. Pain: Denies pain. Neuro: Level of Consciousness is awake, alert, obeys commands, Oriented to person, place, time, situation, Reports weakness 2-3 days. Respiratory: Respiratory effort is even, unlabored, Respiratory pattern is regular, symmetrical. GI: Reports gaseousness, indigestion. Derm: Skin is pink, warm \T\ dry. Historical: - Allergies: 04:10 Cymbalta; ll3 04:10 Librax; ll3 04:10 Neurontin; ll3 04:10 Paxil; ll3 04:10 Jbwvqoy-Wvc-Zjl Reductase Inhibitors; ll3 04:10 Tramadol HCl; ll3 04:10 Xanax; ll3 - Home Meds: 04:10 carvedilol 3.125 mg oral tablet once [Active]; Zoloft Oral [Active]; ll3 - PMHx: 04:10 Anxiety; Hypertension; Osteoporosis; ll3 - PSHx: 04:10 Total abdominal hysterectomy; ll3 - Immunization history:: Client reports receiving the 2nd dose of the Covid vaccine. - Social history:: Smoking status: Patient denies any tobacco usage or history of. Screenin:13 Abuse screen: Denies threats or abuse. Nutritional screening: No deficits noted. ap3 Tuberculosis screening: No symptoms or risk factors identified. Assessment: 04:10 General: See triage assessment. ll3 05:10 Reassessment: ERP notified, medicated as ordered. GI: Reports nausea. ll3 Vital Signs: 04:08 BP 177 / 97; Pulse 82; Resp 18; Temp 97.7(O); Pulse Ox 98% on R/A; Weight 53.07 kg (R); ll3 Height 5 ft. 1 in. (R); Pain 0/10; 05:10 BP 166 / 89; Pulse 83; Resp 20; Pulse Ox 98% on R/A; ll3 07:14 BP 166 / 85; Pulse 91; Pulse Ox 96% on R/A; ap3 04:08 Body Mass Index 22.11 (53.07 kg, 154.94 cm) ll3 04:08 Pain Scale: Adult ll3 ED Course: 04:00 Patient arrived in ED. sb4 04:00 Felice Kothari MD is Attending Physician. sp3 04:10 Triage completed. ll3 04:10 Arm band placed on Patient placed in an exam room, on a stretcher, on monitoring manager, ll3 on pulse oximetry. 04:36 XRAY Chest (1 view) In Process Unspecified. EDMS 05:49 Timothy Dawson MD is Hospitalizing Provider. sp3 07:04 Erma Madison, SABA is Primary Nurse. ap3 07:13 Patient has correct armband on for positive identification. electronic device monitor on. Pulse ap3 ox on. NIBP on. Door closed. Noise minimized. Warm blanket given. 07:14 No provider procedures requiring assistance completed. ap3 Administered Medications: 04:24 Drug: NS 0.9% IV 1000 ml Route: IV; Rate: 1 bolus; Site: right antecubital; ll3 06:23 Follow up: Response: No adverse reaction; IV Status: Completed infusion; IV Intake: ll3 1000ml 05:03 Drug: Ondansetron IVP 4 mg Route: IVP; Site: right forearm; ll3 06:23 Follow up: Response: No adverse reaction; Nausea unchanged ll3 05:49 CANCELLED (error): Naloxone IVP 0.4 mg IVP once sp3 05:58 Drug: Ondansetron IVP 4 mg Route: IVP; Site: right forearm; ll3 Medication: 07:13 VIS not applicable for this client. ap3 Intake: 06:23 IV: 1000ml; Total: 1000ml. ll3 Outcome: 05:50 Decision to Hospitalize by Provider. sp3 14:06 Patient left the ED. ss Signatures: Dispatcher [employer] EDCT Michelle Reyes RN RN ss Erma Madison RN RN [id number] Felice Kothari MD MD sp3 Kalyan Lange RN RN ll3 Dee Kevin PA-C PAYadira sb4 Corrections: (The following items were deleted from the chart) 04:14 04:13 General: See triage assessment. ll3 ll3
[2022-10-25 06:15] LABS: SARS-CoV-2 Antigen Rapid Res Negative (Negative)
[2022-10-25] MEDS ORDERED: ACETAMINOPHEN 500 MG TAB PO PRN (06:26)
[2022-10-25] MEDS ORDERED: ONDANSETRON 4 MG/2 ML VIAL IV PRN (06:26)
[2022-10-25] MEDS ORDERED: NA CHLORIDE 0.9% 1,000 ML IV SCH (06:26)
[2022-10-25 07:12] VITALS: BMI 22.1
[2022-10-25] MEDS ORDERED: ACETAMINOPHEN 500 MG TAB ONE (07:36)
[2022-10-25 07:44] VITALS: O2SAT 98
[2022-10-25] MEDS ORDERED: SODIUM CHLORIDE 0.9% 10ML INJ IV PRN ×2 (07:53→08:00)
[2022-10-25] MEDS ORDERED: PANTOPRAZOLE 40 MG INJ IVP ONE (07:53)
[2022-10-25] MEDS ORDERED: clonazePAM 0.5 MG TAB ONE (08:13)
[2022-10-25] MEDS ORDERED: PANTOPRAZOLE 40 MG INJ ONE (08:13)
[2022-10-25] MEDS: clonazePAM 0.5 MG TAB PO SCH ×2 (08:14→21:01)
[2022-10-25] MEDS: PANTOPRAZOLE 40 MG INJ IVP SCH ×2 (08:14→21:01)
[2022-10-25 11:31] LABS: Troponin High Sensitivity 6.6 pg/mL (<58.9)
--- NOTE | 2022-10-25 13:24 | RAD REPORT ---
EXAM DESCRIPTION: RAD - Chest Single View - 10/25/2022 4:34 am CLINICAL HISTORY: The patient is 82 years old and is Female; weakness TECHNIQUE: Single view of the chest. COMPARISON: October 19, 2021 FINDINGS: Lungs: No pulmonary vascular congestion or consolidation. Pleural space: Unremarkable. No pneumothorax. Heart: Unremarkable. No cardiomegaly. Mediastinum: Unremarkable. Bones/joints: No acute fracture visualized. Upper abdomen: No free air in the visualized upper abdomen. IMPRESSION: No acute cardiopulmonary process identified. Electronically signed by: Eve Gardner MD 10/25/2022 5:15 AM CDT Due to temporary technical issues with the PACS/Fluency reporting system, reports are being signed by the in house radiologists without review as a courtesy to insure prompt reporting. The interpreting radiologist is fully responsible for the content of the report.
[2022-10-25 14:15] LABS: Troponin High Sensitivity 6.8 pg/mL (<58.9)
--- NOTE | 2022-10-25 17:21 | EKG ---
Test Date: 2022-10-25 Test Time: 04:31:15 Program Attendant: MIRIAN MEASUREMENT RESULTS: Intervals: Rate: 73 MT: 126 QRSD: 88 QT: 422 QTc: 464 [place]: P: 64 MT: 126 QRS: 73 T: 75 INTERPRETIVE STATEMENTS: Normal sinus rhythm Minimal voltage criteria for LVH, may be normal variant T wave abnormality, consider anterior ischemia Abnormal ECG Compared to ECG 10/19/2021 08:44:58 T-wave abnormality now present Possible ischemia now present Prolonged QT interval no longer present Electronically Signed On 10-25-22 17:20:22 CDT by Trent Garduno
--- NOTE | 2022-10-25 17:52 | CON ---
Date of Consultation: 10/25/2022 Reason For Consultation: Palpitations. History Of Present Illness: This is an 82-year-old female, who was sent to the emergency room tony hyatt of generalized weakness and feels very anxious, likes heat feeling in her chest as well as palpitat ion, but she has significant anxiety disorders with panic attacks. Past Medical History: Hypertension, anxiety. Medications: Refer to reconciliation sheet for detailed list. Allergies: REVIEWED PER THE NURSE'S NOTE. Family History: No premature coronary artery disease or cancer. Social History: Does not smoke or drink. Does not use any drugs. Review of Systems: All systems reviewed and they were negative except what mentioned in HPI. Physical Examination: Vital Signs: Reviewed. Head and Neck: Pupils are equal, reactive to light. Intact eye movements. No JVD. No cervical lym phadenopathy. Neck is supple. Thyroid is not enlarged. Lungs: Clear to auscultation bilaterally. No rhonchi, wheezing, or crackles. No accessory muscle u se. Heart: Regular rate and rhythm. No extra sounds. Abdomen: Soft, nontender. Bowel sounds positive. No organomegaly. No masses or hernia. No rigidi ty or rebound. Extremities: No edema, clubbing, or cyanosis. Intact pulses. Skin: No rash. Neurologic: Alert, awake, oriented x3. No acute focal deficits appreciated. Investigations: Three sets of troponins are negative. BUN 9, creatinine 0.7, hemoglobin is 13.7. Assessment And Recommendations: 1.Palpitations. She has been in sinus rhythm, but she is very anxious. I believe this is anxiety. I recommend propranolol 10 mg twice a day. The patient can be released, follow up in the office in 1-2 weeks, and we will obtain a full month Holter monitor on her to evaluate for possible presence of any arrhythmia. 2.Hypertension. Blood pressure is controlled. SR/MODL Voice ID: [id number] Report ID: [id number]
[2022-10-25 21:08] VITALS: BP 128/71; TEMP 96.9
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
== END 2022-10-25 21:20 | disposition home or self-care (01) ==
LOC: ER 03:57 → ERHOLD 05:43 → 4TH 14:02
PROVIDERS: ADMIT Internal Medicine; ATTEND Internal Medicine
DX: F41.0 Panic disorder [episodic paroxysmal anxiety] (principal); E86.0 Dehydration; R00.2 Palpitations; R53.1 Weakness; R53.83 Other fatigue; M81.0 Age-related osteoporosis without current pathological fracture; I10 Essential (primary) hypertension; Z20.822 Contact with and (suspected) exposure to COVID-19
CPT/HCPCS: 93005; 85025; 81001; 80048; 36415; 83735; 82550 ×3; 80076; 84484 ×3; 83880; 71045; 87811; C9113 ×2; J2405 ×2; J7030 ×2; G0378